=== PATIENT | male | born 1935 | race Hispanic/Latino ===

== ENCOUNTER → 2018-03-21 | Outpatient (CLI) | payer OTHER | END | disposition home or self-care (01) | LOC: RAH 09:29 | PROVIDERS: ATTEND Family Medicine | DX: M17.12 Unilateral primary osteoarthritis, left knee (principal) | CPT/HCPCS: 73562 ==

== ENCOUNTER → 2019-11-12 | Outpatient (CLI) | payer OTHER | END | disposition home or self-care (01) | LOC: OIH 10:50 | PROVIDERS: ATTEND Family Medicine | DX: M47.817 Spondylosis without myelopathy or radiculopathy, lumbosacral region (principal); M85.88 Other specified disorders of bone density and structure, other site; I70.0 Atherosclerosis of aorta | CPT/HCPCS: 72100; 73502 ==

== ENCOUNTER 2019-12-02 22:03 | Inpatient (IN) | payer OTHER ==
[~2019-12-02] VITALS: Ht 180.3 cm; Wt 112.3 kg
[2019-12-02] MEDS ORDERED: ONDANSETRON HCL 4 MG/2 ML VIAL ONE (22:43)
[2019-12-02 22:47] LABS: BASOPHILS % (AUTO) 0.3 % (0.0-5.0); EOSINOPHILS % (AUTO) 0.1 % (0.0-8.0); HEMATOCRIT 47.4 % (42-54); LYMPHOCYTES % (AUTO) 5.3 % (21.0-51.0); MEAN CORPUSCULAR HEMOGLOBIN 30.2 pg (27.0-33.0); MEAN CORPUSCULAR HGB CONC 33.5 g/dL (32.0-36.0); MEAN CORPUSCULAR VOLUME 89.9 fL (79-99); MONOCYTES % (AUTO) 3.3 % (3.0-13.0); NEUTROPHILS % (AUTO) 90.6 % (40.0-77.0); PLATELET COUNT (AUTO) 285 K/uL (130-400); RED BLOOD CELL COUNT(AUTO) 5.27 MIL/uL (4.50-6.20); RED CELL DISTRIBUTION WIDTH 14.5 % (11.0-15.5); WHITE BLOOD COUNT (AUTO) 17.7 K/uL (4.8-10.8)
[2019-12-02 22:58] LABS: CREATININE 1.3 mg/dL (0.5-1.5); POTASSIUM 4.4 mmol/L (3.5-5.1)
[2019-12-02 23:04] LABS: ALBUMIN 3.1 g/dL (3.5-5.0); BILIRUBIN,TOTAL 2.7 mg/dL (0.2-1.0); TOTAL PROTEIN, SERUM 7.5 g/dL (6.0-8.3)
[2019-12-02] MEDS ORDERED: ZOSYN 3.375GM+NS 50ML 50 ML IV ONE (23:32)
[2019-12-02 23:46] LABS: APPEARANCE,URINE Clear (CLEAR); BILIRUBIN,URINE Small (NEGATIVE); COLOR,URINE Dark Yellow (YELLOW); GLUCOSE, URINE (UA) Negative (NEGATIVE); KETONES,URINE Negative (NEGATIVE); LEUKOCYTE ESTERASE ,URINE Trace (NEGATIVE); NITRATE,URINE Negative (NEGATIVE); OCCULT BLOOD,URINE Negative (NEGATIVE); PH,URINE 5.5 (5.0-8.0); PROTEIN,URINE Negative (NEGATIVE); UROBILINOGEN,URINE >=8.0 mg/dL (0.2-1.0)
[2019-12-03] VITALS (7 sets, daily range): BP systolic 143–173; BP diastolic 79–94
[2019-12-03 00:05] LABS: AMORPHOUS SEDIMENT,UR Few /LPF (None Seen); BACTERIA,URINE Few /HPF (None Seen); MUCUS,URINE Rare LPF (None Seen); RBC,URINE 0-1 /HPF (0-1); SQUAMOUS EPITHELIAL CELL,UR 0-2 /HPF (0-2); WBC,URINE 0-1 /HPF (0-1)
[2019-12-03] MEDS ORDERED: ONDANSETRON HCL 4 MG/2 ML VIAL IVP PRN (00:30)
[2019-12-03] MEDS ORDERED: VANCOMYCIN 1GM+NS 250ML 250 ML IV ONE (00:38)
[2019-12-03] MEDS ORDERED: MEPERIDINE-PF 50 MG/ML SYG IVP PRN ×2 (00:45→04:45)
[2019-12-03] MEDS ORDERED: VANCOMYCIN PROTOCOL PER PHARMACY IV SCH (01:00)
--- NOTE | 2019-12-03 01:00 | NUR ---
ER ADMIT Arrived from ER accompanied per ,pt is aao x 3,has HX of Alzheimers according to his .Admission care rendered,plan of care explained to pt and his in Macedonian per Yeimi Zimmerman RN.
[2019-12-03] MEDS ORDERED: TAMS-1 PO (01:32)
[2019-12-03] MEDS ORDERED: NAPR-1023 PO (01:32)
[2019-12-03] MEDS ORDERED: ONDA4TAB10 PO (01:32)
[2019-12-03] MEDS ORDERED: BACTSS PO (01:32)
[2019-12-03] MEDS ORDERED: DICL100G31 TP (01:32)
[2019-12-03] MEDS ORDERED: LINA145C PO (01:32)
[2019-12-03] MEDS ORDERED: LOSA100T58 PO (01:32)
[2019-12-03] MEDS ORDERED: FLUT1BLS3 IH (01:32)
[2019-12-03] MEDS ORDERED: FOLI1 PO (01:32)
[2019-12-03] MEDS: VANCOMYCIN 1GM+NS 250ML 250 ML IV SCH ×3 (01:57→03:17)
[2019-12-03] MEDS: SODIUM CHLORIDE 0.9% 1000ML 1,000 ML IV SCH ×2 (01:57→13:03)
--- NOTE | 2019-12-03 02:46 | NUR ---
VANCOMYCIN Pt was given 1 gram Vancomycin in ED,additional 1 gm given on the floor.
[2019-12-03 05:49] LABS: HEMATOCRIT 41.7 % (42-54); MEAN CORPUSCULAR HEMOGLOBIN 29.9 pg (27.0-33.0); MEAN CORPUSCULAR HGB CONC 33.6 g/dL (32.0-36.0); MEAN CORPUSCULAR VOLUME 88.9 fL (79-99); RED BLOOD CELL COUNT(AUTO) 4.69 MIL/uL (4.50-6.20); RED CELL DISTRIBUTION WIDTH 14.5 % (11.0-15.5)
[2019-12-03 06:12] LABS: ALBUMIN 2.4 g/dL (3.5-5.0); BILIRUBIN,TOTAL 2.3 mg/dL (0.2-1.0); CREATININE 1.3 mg/dL (0.5-1.5); POTASSIUM 4.1 mmol/L (3.5-5.1); TOTAL PROTEIN, SERUM 5.9 g/dL (6.0-8.3)
--- NOTE | 2019-12-03 08:30 | NUR ---
DR. LLANES AWARE OF CONSULT SPOKE TO MD VIA TELEPHONE REGARDING CONSULT
[2019-12-03] MEDS: ZOSYN 3.375GM+NS 50ML 50 ML IV SCH ×3 (09:30→23:52)
[2019-12-03] MEDS: PANTOPRAZOLE 40 MG/VIAL IVP SCH (09:31)
[2019-12-03] MEDS ORDERED: COMPOUND IV REFRIGERATED 1 EACH IVSOLN MISC PRN (12:00)
--- NOTE | 2019-12-03 12:08 | NUR ---
DCP CM met with pt currently being taken for MRCP. Called daughter on facesheet, spoke to Janet Lambert , discussed dc plans. Per leena pt is semi-independent prior to admission, lives at home with spouse, daughter lives close by. Denies any equipments/services. Feels safe to go back home, spouse able to assist with transportation and needs. DC plan to home once stable. CM to cont to follow up. Addendum: 12/03/19 at 1210 by KARSTEN NICHOLAS LVN CM Amended: Links added.
--- NOTE | 2019-12-03 15:30 | NUR ---
DR. MARIO ALBERTO MARSHALL CALLED DR. BOOTHE'S OFFICE, SPOKE TO "SANDEEP" [phone]. INFORMED THAT MRCP RESULTS AVAILABLE.
--- NOTE | 2019-12-03 15:50 | NUR ---
DR. HERZOG SPOKE TO MD REGARDING DR. LLANES RECOMMENDATIONS. DR. MINO BRAXTONED FOR GENERAL SURGERY CONSULT.
--- NOTE | 2019-12-03 15:55 | NUR ---
DR. HINTON AWARE OF CONSULT SPOKE TO MD REGARDING CONSULT.
--- NOTE | 2019-12-03 16:08 | NUR ---
DR. MINO MARSHALL MD TO INFORM THAT MEDICAL CLEARANCE NEEDED AND H&P NEEDED WELL. NO ANSWER AT THIS TIME.
--- NOTE | 2019-12-03 16:13 | NUR ---
DR. MINO YOON AWARE MEDICAL CLEARANCE AND H&P NEEDED FOR PATIENT. STATES HE "WILL DO IT LATER TODAY."
--- NOTE | 2019-12-03 19:44 | NUR ---
BP: 174/95 informed by bobby WILLIAMSON with an order to resume home meds.
[2019-12-03] MEDS ORDERED: NAPROXEN 500 MG TABLET PO PRN (21:15)
--- NOTE | 2019-12-03 21:24 | NUR ---
BP: 181/93 informed thru phone pt. on NPO thus, needs a BP med via IV. then ordered the ff: 1. Labetalol 5 mg IV q4h prn for systolic greater 150 2. Nitropaste 1 inch chest wall q8h schedule.
[2019-12-03] MEDS: NITROGLYCERIN 1GM/1 INCH PACKET TD SCH (22:27)
[2019-12-03] MEDS: LABETALOL 20 MG/4 ML DISP.SYRIN IV PRN (22:33)
[2019-12-03] MEDS: VANCOMYCIN 1.75 GM in SODIUM CHLORIDE 0.9% 250 ML IV SCH (23:52)
[2019-12-04] VITALS (26 sets, daily range): BP systolic 115–185; BP diastolic 53–112
[2019-12-04] MEDS: SODIUM CHLORIDE 0.9% 1000ML 1,000 ML IV SCH ×2 (00:02→13:23)
[2019-12-04] MEDS: NITROGLYCERIN 1GM/1 INCH PACKET TD SCH ×3 (05:25→23:12)
[2019-12-04 06:19] LABS: AMYLASE 153 U/L (25-115); LIPASE 836 U/L (114-286)
[2019-12-04] MEDS ORDERED: NITROGLYCERIN 1GM/1 INCH PACKET TD SCH (06:30)
[2019-12-04] MEDS: **HM**(Linaclotide (Linzess) 145 MCG PO SCH (07:30)
--- NOTE | 2019-12-04 08:51 | NUR ---
DR. HERZOG CONTACT DR. HERZOG REGARDING MEDICAL CLEARANCE FOR PENDING PROCEDURE. DR. HERZOG STATED PATIENT IS MEDICALLY CLEAR FOR PROCEDURE.
[2019-12-04] MEDS: ZOSYN 3.375GM+NS 50ML 50 ML IV SCH ×2 (08:55→15:41)
[2019-12-04] MEDS: PANTOPRAZOLE 40 MG/VIAL IVP SCH (08:55)
[2019-12-04] MEDS: LOSARTAN 100 MG TABLET PO SCH (08:59)
[2019-12-04] MEDS: FOLIC ACID 1 MG TABLET PO SCH (08:59)
[2019-12-04] MEDS: **HM**(Fluticasone/Umeclidin/Vilanter (Trelegy Ellipta 100-62.5- IH SCH (09:00)
[2019-12-04] MEDS ORDERED: DICLOFENAC TP SCH (09:00)
[2019-12-04] MEDS ORDERED: BUPIVACAINE/PF 0.5% 30ML VIAL ONE (09:28)
[2019-12-04] MEDS ORDERED: LIDOCAINE PF 2% 5ML ABBOJECT ONE (09:36)
[2019-12-04] MEDS ORDERED: FENTANYL CITRATE PF 50 MCG/1 ML 2ML VIAL ONE (09:36)
[2019-12-04] MEDS ORDERED: SUCCINYLCHOLINE 200MG/10ML SYR ONE (09:36)
[2019-12-04] MEDS ORDERED: MIDAZOLAM HCL 1 MG/ML 2ML VIAL ONE (09:36)
[2019-12-04] MEDS ORDERED: PROPOFOL 10 MG/ML 20ML VIAL IV ONE (09:36)
[2019-12-04] MEDS ORDERED: ROCURONIUM 10MG/1ML SYR 10 MG/ML ML ONE (09:36)
[2019-12-04] MEDS ORDERED: ONDANSETRON HCL 4 MG/2 ML VIAL ONE (09:37)
[2019-12-04] MEDS ORDERED: DEXAMETHASONE SOD PHOSPHATE 10MG/ML 1ML VIAL ONE (09:37)
[2019-12-04] MEDS ORDERED: EPHEDRINE SULFATE 50 MG/ML AMPULE ONE (10:43)
[2019-12-04] MEDS ORDERED: FENTANYL CITRATE PF 50 MCG/1 ML 5ML AMP IV ONE (11:05)
[2019-12-04] MEDS ORDERED: ESMOLOL HCL 10 MG/ML 10 ML VIAL ONE (11:07)
[2019-12-04] MEDS ORDERED: NEOSTIGMINE 5MG/5ML SYR IV ONE (11:07)
[2019-12-04] MEDS ORDERED: GLYCOPYRROLATE 1 MG/5 ML SYRINGE ONE (11:07)
[2019-12-04] MEDS: LABETALOL 20 MG/4 ML DISP.SYRIN IV PRN ×2 (12:33→16:32)
--- NOTE | 2019-12-04 15:09 | NUR ---
RD NOTIFICATION - TRIGGER Pt admitted for pancreatitis. Pt s/p Lap shadia as per EMR. Pt was NPO at time of screen pending procedure. Diet current advanced to Clear Liquid Diet Order. Pt with Class II Obesity (34.5). History of Dementia, DM, HTN, HLD. Recommend advance diet as tolerated to GI Soft/[place], 75gm CCD, as medically feasible. RD to continue to monitor. Please notify as nutrition concerns arise. thank you. Addendum: 12/04/19 at [address] RD Amended: Links added.
--- NOTE | 2019-12-04 16:18 | NUR ---
[id number] patient's signed IM Letter, I faxed IM Letter to [phone] and placed in chart under consent tab.
[2019-12-04] MEDS: TAMSULOSIN HCL 0.4 MG CAP.ER.24H PO SCH (21:00)
[2019-12-05] VITALS: BP 125/54
[2019-12-05] MEDS: ZOSYN 3.375GM+NS 50ML 50 ML IV SCH ×3 (00:07→15:18)
[2019-12-05] MEDS: SODIUM CHLORIDE 0.9% 1000ML 1,000 ML IV SCH ×3 (00:54→20:39)
[2019-12-05 04:00] VITALS: BP 122/57
[2019-12-05] MEDS: VANCOMYCIN 1.75 GM in SODIUM CHLORIDE 0.9% 250 ML IV SCH (04:00)
[2019-12-05 04:06] LABS: HEMATOCRIT 40.1 % (42-54); MEAN CORPUSCULAR HEMOGLOBIN 29.8 pg (27.0-33.0); MEAN CORPUSCULAR HGB CONC 33.4 g/dL (32.0-36.0); MEAN CORPUSCULAR VOLUME 89.3 fL (79-99); RED BLOOD CELL COUNT(AUTO) 4.49 MIL/uL (4.50-6.20); RED CELL DISTRIBUTION WIDTH 14.2 % (11.0-15.5); WHITE BLOOD COUNT (AUTO) 18.1 K/uL (4.8-10.8)
[2019-12-05 04:36] LABS: ALBUMIN 2.2 g/dL (3.5-5.0); BILIRUBIN,TOTAL 1.5 mg/dL (0.2-1.0); CREATININE 1.2 mg/dL (0.5-1.5); POTASSIUM 4.1 mmol/L (3.5-5.1); TOTAL PROTEIN, SERUM 5.9 g/dL (6.0-8.3)
[2019-12-05] MEDS: **HM**(Linaclotide (Linzess) 145 MCG PO SCH (07:30)
[2019-12-05] MEDS: NITROGLYCERIN 1GM/1 INCH PACKET TD SCH ×3 (07:40→20:39)
[2019-12-05 08:00] VITALS: BP 135/74
[2019-12-05] MEDS: **HM**(Fluticasone/Umeclidin/Vilanter (Trelegy Ellipta 100-62.5- IH SCH (08:44)
[2019-12-05] MEDS: PANTOPRAZOLE 40 MG/VIAL IVP SCH (09:03)
[2019-12-05] MEDS: FOLIC ACID 1 MG TABLET PO SCH (09:04)
[2019-12-05] MEDS: LOSARTAN 100 MG TABLET PO SCH (09:04)
[2019-12-05 12:00] VITALS: BP 154/92
[2019-12-05 16:00] VITALS: BP 154/99
[2019-12-05] MEDS: LABETALOL 20 MG/4 ML DISP.SYRIN IV PRN (17:12)
[2019-12-05 20:00] VITALS: BP 146/81
[2019-12-05] MEDS: TAMSULOSIN HCL 0.4 MG CAP.ER.24H PO SCH (20:39)
[2019-12-06] VITALS (7 sets, daily range): BP systolic 132–161; BP diastolic 52–92
[2019-12-06] MEDS: ZOSYN 3.375GM+NS 50ML 50 ML IV SCH ×3 (00:23→16:00)
[2019-12-06] MEDS: VANCOMYCIN 1.75 GM in SODIUM CHLORIDE 0.9% 250 ML IV SCH (00:23)
[2019-12-06] MEDS: NITROGLYCERIN 1GM/1 INCH PACKET TD SCH ×3 (04:34→22:04)
[2019-12-06] MEDS: **HM**(Linaclotide (Linzess) 145 MCG PO SCH (04:40)
[2019-12-06 06:09] LABS: BASOPHILS % (AUTO) 0.2 % (0.0-5.0); EOSINOPHILS % (AUTO) 0.2 % (0.0-8.0); HEMATOCRIT 37.4 % (42-54); LYMPHOCYTES % (AUTO) 5.6 % (21.0-51.0); MEAN CORPUSCULAR HEMOGLOBIN 29.7 pg (27.0-33.0); MEAN CORPUSCULAR VOLUME 87.6 fL (79-99); MONOCYTES % (AUTO) 6.3 % (3.0-13.0); NEUTROPHILS % (AUTO) 87.2 % (40.0-77.0); PLATELET COUNT (AUTO) 210 K/uL (130-400); RED BLOOD CELL COUNT(AUTO) 4.27 MIL/uL (4.50-6.20); RED CELL DISTRIBUTION WIDTH 14.3 % (11.0-15.5); WHITE BLOOD COUNT (AUTO) 19.7 K/uL (4.8-10.8)
[2019-12-06 06:25] LABS: ALBUMIN 2.1 g/dL (3.5-5.0); BILIRUBIN,TOTAL 1.4 mg/dL (0.2-1.0); CREATININE 1.1 mg/dL (0.5-1.5); POTASSIUM 3.7 mmol/L (3.5-5.1); TOTAL PROTEIN, SERUM 5.7 g/dL (6.0-8.3)
[2019-12-06] MEDS: **HM**(Fluticasone/Umeclidin/Vilanter (Trelegy Ellipta 100-62.5- IH SCH (09:00)
[2019-12-06] MEDS: PANTOPRAZOLE 40 MG/VIAL IVP SCH (09:43)
[2019-12-06] MEDS: LOSARTAN 100 MG TABLET PO SCH (09:43)
[2019-12-06] MEDS: FOLIC ACID 1 MG TABLET PO SCH (09:43)
[2019-12-06] MEDS ORDERED: ACETAMINOPHEN 325 MG TAB ONE (10:04)
[2019-12-06] MEDS ORDERED: ACETAMINOPHEN 325 MG TAB PO SCH (10:15)
[2019-12-06] MEDS: SODIUM CHLORIDE 0.9% 1000ML 1,000 ML IV SCH ×2 (10:54→22:05)
--- NOTE | 2019-12-06 12:38 | NUR ---
DR. MARY JANE ROBERTSON CAME TO SEE PT AT BEDSIDE, PT C/O OF CONSTIPATION , NEW OR OF MILK MG X ONCE.
[2019-12-06] MEDS ORDERED: MAGNESIUM HYDROXIDE 30 ML/UDCUP PO SCH (12:45)
[2019-12-06] MEDS: TAMSULOSIN HCL 0.4 MG CAP.ER.24H PO SCH (22:04)
[2019-12-07] MEDS: ZOSYN 3.375GM+NS 50ML 50 ML IV SCH ×4 (00:10→23:35)
[2019-12-07] MEDS: VANCOMYCIN 1.75 GM in SODIUM CHLORIDE 0.9% 250 ML IV SCH (00:43)
[2019-12-07 04:00] VITALS: BP 111/75
[2019-12-07] MEDS: NITROGLYCERIN 1GM/1 INCH PACKET TD SCH ×3 (04:33→20:12)
[2019-12-07] MEDS: **HM**(Linaclotide (Linzess) 145 MCG PO SCH (04:33)
[2019-12-07 07:38] VITALS: BP 136/74
[2019-12-07] MEDS: LOSARTAN 100 MG TABLET PO SCH (08:18)
[2019-12-07] MEDS: FOLIC ACID 1 MG TABLET PO SCH (08:18)
[2019-12-07] MEDS: VANCOMYCIN 1.25 GM in SODIUM CHLORIDE 0.9% 250 ML IV SCH ×2 (08:19→20:13)
[2019-12-07] MEDS: PANTOPRAZOLE 40 MG/VIAL IVP SCH (08:29)
[2019-12-07] MEDS: **HM**(Fluticasone/Umeclidin/Vilanter (Trelegy Ellipta 100-62.5- IH SCH (09:00)
[2019-12-07] MEDS: SODIUM CHLORIDE 0.9% 1000ML 1,000 ML IV SCH ×2 (11:06→20:13)
[2019-12-07 11:25] VITALS: BP 126/74
[2019-12-07] MEDS ORDERED: MAGNESIUM HYDROXIDE 30 ML/UDCUP PO SCH (12:30)
[2019-12-07] MEDS: IPRATROPIUM/ALBUTEROL SULFATE 3 ML SOLUTION IH PRN ×2 (13:31→19:41)
[2019-12-07 16:40] VITALS: BP 111/61
[2019-12-07 19:51] VITALS: BP 130/79
[2019-12-07] MEDS: TAMSULOSIN HCL 0.4 MG CAP.ER.24H PO SCH (20:12)
[2019-12-07 23:29] VITALS: BP 173/95
[2019-12-07] MEDS: LABETALOL 20 MG/4 ML DISP.SYRIN IV PRN (23:48)
--- NOTE | 2019-12-07 23:48 | NUR ---
B/P B/P 173/95 NO SOB, NO C/O PAIN , LABETOLOL 5MG IVP GIVEN SLOWLY
--- NOTE | 2019-12-08 00:45 | NUR ---
MED EFFECT B/P 144/75, NO SOB, NO C/O PAIN, PATIENTS AT BEDSIDE
[2019-12-08 04:00] VITALS: BP 154/88
[2019-12-08] MEDS: NITROGLYCERIN 1GM/1 INCH PACKET TD SCH ×3 (04:11→21:12)
[2019-12-08] MEDS: **HM**(Linaclotide (Linzess) 145 MCG PO SCH (07:30)
[2019-12-08 07:44] VITALS: BP 164/88
[2019-12-08] MEDS: ZOSYN 3.375GM+NS 50ML 50 ML IV SCH ×2 (07:58→17:00)
[2019-12-08] MEDS: LOSARTAN 100 MG TABLET PO SCH (08:09)
[2019-12-08] MEDS: FOLIC ACID 1 MG TABLET PO SCH (08:09)
[2019-12-08] MEDS: PANTOPRAZOLE SODIUM 40 MG TABLET.DR PO SCH (08:09)
[2019-12-08] MEDS: **HM**(Fluticasone/Umeclidin/Vilanter (Trelegy Ellipta 100-62.5- IH SCH (08:10)
[2019-12-08] MEDS: VANCOMYCIN 1.25 GM in SODIUM CHLORIDE 0.9% 250 ML IV SCH ×2 (09:00→21:10)
[2019-12-08 11:21] VITALS: BP 142/86
[2019-12-08] MEDS: SODIUM CHLORIDE 0.9% 1000ML 1,000 ML IV SCH ×2 (12:00→21:50)
[2019-12-08] MEDS: DOCUSATE SODIUM 100 MG CAP PO SCH ×2 (13:22→19:21)
[2019-12-08 16:10] VITALS: BP 135/82
[2019-12-08] MEDS ORDERED: BISACODYL 5 MG TABLET.DR PO SCH (18:00)
[2019-12-08] MEDS ORDERED: MAGNESIUM HYDROXIDE 30 ML/UDCUP PO SCH (18:00)
[2019-12-08] MEDS: TAMSULOSIN HCL 0.4 MG CAP.ER.24H PO SCH (19:21)
[2019-12-08 20:00] VITALS: BP 174/95
[2019-12-08] MEDS: MEPERIDINE-PF 50 MG/ML SYG IVP PRN (21:10)
[2019-12-08] MEDS: MORPHINE SULFATE 4 MG/1ML SYG IV PRN (21:50)
[2019-12-08 23:33] VITALS: BP 162/83
[2019-12-09] MEDS: ZOSYN 3.375GM+NS 50ML 50 ML IV SCH ×3 (00:05→16:54)
[2019-12-09] MEDS: MEPERIDINE-PF 50 MG/ML SYG IVP PRN ×2 (00:49→04:28)
[2019-12-09] MEDS: MORPHINE SULFATE 4 MG/1ML SYG IV PRN ×2 (01:56→05:12)
[2019-12-09 04:00] VITALS: BP 180/96
[2019-12-09] MEDS: LABETALOL 20 MG/4 ML DISP.SYRIN IV PRN (04:16)
[2019-12-09] MEDS: NITROGLYCERIN 1GM/1 INCH PACKET TD SCH ×3 (04:17→21:21)
[2019-12-09 04:29] LABS: HEMATOCRIT 37.7 % (42-54); MEAN CORPUSCULAR HEMOGLOBIN 30.5 pg (27.0-33.0); MEAN CORPUSCULAR HGB CONC 34.5 g/dL (32.0-36.0); MEAN CORPUSCULAR VOLUME 88.5 fL (79-99); PLATELET COUNT (AUTO) 210 K/uL (130-400); RED BLOOD CELL COUNT(AUTO) 4.26 MIL/uL (4.50-6.20); RED CELL DISTRIBUTION WIDTH 14.3 % (11.0-15.5); WHITE BLOOD COUNT (AUTO) 10.2 K/uL (4.8-10.8)
[2019-12-09 04:43] LABS: BILIRUBIN,TOTAL 1.1 mg/dL (0.2-1.0); CREATININE 1.2 mg/dL (0.5-1.5); POTASSIUM 3.8 mmol/L (3.5-5.1); TOTAL PROTEIN, SERUM 5.8 g/dL (6.0-8.3)
[2019-12-09 04:46] LABS: BAND NEUTROPHILS % (MANUAL) 3 % (0-2); BASOPHILS % (MANUAL) 1 % (0-2); EOSINOPHILS % (MANUAL) 2 % (1-6); LYMPHOCYTES % (MANUAL) 11 % (22-44); MONOCYTES % (MANUAL) 5 % (2-9); SEGMENTED NEUTROPHILS % 78 % (40-70)
[2019-12-09 04:47] LABS: MAN.DIFF COMMENT-IMPRESSION MANUAL DIFFERENTIAL; PLATELET MORPHOLOGY COMMENT ADEQUATE
[2019-12-09 05:49] VITALS: BP 159/82
[2019-12-09] MEDS: **HM**(Linaclotide (Linzess) 145 MCG PO SCH (05:49)
[2019-12-09 07:30] VITALS: BP 156/74
[2019-12-09] MEDS: VANCOMYCIN 1.25 GM in SODIUM CHLORIDE 0.9% 250 ML IV SCH ×2 (10:15→21:21)
[2019-12-09] MEDS: FOLIC ACID 1 MG TABLET PO SCH (10:16)
[2019-12-09] MEDS: DOCUSATE SODIUM 100 MG CAP PO SCH ×3 (10:17→21:00)
[2019-12-09] MEDS: PANTOPRAZOLE SODIUM 40 MG TABLET.DR PO SCH (10:17)
[2019-12-09] MEDS: LOSARTAN 100 MG TABLET PO SCH (10:17)
[2019-12-09] MEDS: SODIUM CHLORIDE 0.9% 1000ML 1,000 ML IV SCH ×2 (10:19→21:20)
[2019-12-09] MEDS: **HM**(Fluticasone/Umeclidin/Vilanter (Trelegy Ellipta 100-62.5- IH SCH (10:24)
[2019-12-09 11:00] VITALS: BP 128/76
--- NOTE | 2019-12-09 14:09 | NUR ---
DC PLAN VISITED WITH PATIENT. PATIENT SPOUSE IN ROOM. NEITHER WANTED TO MAKE DECISION DEFFERED TO DAUGHTER ON FACE SHEET. SPOUSE GOT DAUGHTER ON PHONE LET HER KNOW OF [facility] FOR SNF. GAVE HER CHOICES BASED ON INSURANCE. SAID SHE WILL CHECK THEM OUT ON LINE. GAVE HER NUMBER TO CALL BACK. Addendum: 12/09/19 at 1412 by EBEN NGO RN CM Amended: Links added.
[2019-12-09 16:00] VITALS: BP 136/71
[2019-12-09 20:21] VITALS: BP 142/66
[2019-12-09] MEDS: TAMSULOSIN HCL 0.4 MG CAP.ER.24H PO SCH (21:21)
[2019-12-10 00:16] VITALS: BP 143/78
[2019-12-10] MEDS: ZOSYN 3.375GM+NS 50ML 50 ML IV SCH ×3 (00:43→16:35)
[2019-12-10 03:52] VITALS: BP 151/82
[2019-12-10] MEDS: NITROGLYCERIN 1GM/1 INCH PACKET TD SCH ×3 (06:13→23:10)
[2019-12-10] MEDS: **HM**(Linaclotide (Linzess) 145 MCG PO SCH (06:13)
[2019-12-10 07:30] VITALS: BP 172/83
[2019-12-10] MEDS: LOSARTAN 100 MG TABLET PO SCH (08:33)
[2019-12-10] MEDS: FOLIC ACID 1 MG TABLET PO SCH (08:33)
[2019-12-10] MEDS: PANTOPRAZOLE SODIUM 40 MG TABLET.DR PO SCH (08:33)
[2019-12-10] MEDS: DOCUSATE SODIUM 100 MG CAP PO SCH ×3 (08:33→23:09)
[2019-12-10] MEDS: **HM**(Fluticasone/Umeclidin/Vilanter (Trelegy Ellipta 100-62.5- IH SCH (09:00)
[2019-12-10] MEDS: VANCOMYCIN 1.25 GM in SODIUM CHLORIDE 0.9% 250 ML IV SCH (09:00)
[2019-12-10] MEDS: SODIUM CHLORIDE 0.9% 1000ML 1,000 ML IV SCH (09:00)
--- NOTE | 2019-12-10 10:55 | NUR ---
CHART REVIEWED, DISCUSSED WITH DR. HERZOG, ADVISED PT WILL BE ON ABX AT DISCHARGE WILL PLACE SNF ORDER WHEN FAMILY DECIDES WHICH FACILITY Addendum: 12/10/19 at 1058 by JESSICA LEON RN CM Amended: Links added.
[2019-12-10 11:00] VITALS: BP 132/72
--- NOTE | 2019-12-10 11:18 | NUR ---
CALL WITH DAUGHTER NAE - DISCUSSED NEED FOR SNF- NO IV ABX, WOULD RATHER TAKE PATIENT HOME, HH, PT, ETC, TEXT TO DR. LAGUERRE, AWAITING CALL BACK FOR ORDER
[2019-12-10 16:00] VITALS: BP 138/69
--- NOTE | 2019-12-10 17:00 | NUR ---
NOTIFIED ON TEMP 100.4. ORDERS FOR UA AND CX ,SENT .
[2019-12-10 20:18] VITALS: BP 147/63
[2019-12-10] MEDS: TAMSULOSIN HCL 0.4 MG CAP.ER.24H PO SCH (23:09)
[2019-12-10] MEDS: VANCOMYCIN 1GM+NS 250ML IV SCH (23:10)
[2019-12-11 00:20] VITALS: BP 130/72
[2019-12-11] MEDS: ZOSYN 3.375GM+NS 50ML 50 ML IV SCH ×3 (03:24→16:22)
[2019-12-11 04:27] VITALS: BP 151/83
[2019-12-11] MEDS: NITROGLYCERIN 1GM/1 INCH PACKET TD SCH ×2 (06:44→13:30)
[2019-12-11] MEDS: **HM**(Linaclotide (Linzess) 145 MCG PO SCH (07:30)
[2019-12-11 07:51] VITALS: BP 151/81
[2019-12-11] MEDS: DOCUSATE SODIUM 100 MG CAP PO SCH ×2 (09:55→14:00)
[2019-12-11] MEDS: VANCOMYCIN 1GM+NS 250ML IV SCH (09:56)
[2019-12-11] MEDS: FOLIC ACID 1 MG TABLET PO SCH (09:56)
[2019-12-11] MEDS: LOSARTAN 100 MG TABLET PO SCH (09:56)
[2019-12-11] MEDS: PANTOPRAZOLE SODIUM 40 MG TABLET.DR PO SCH (09:56)
[2019-12-11] MEDS: **HM**(Fluticasone/Umeclidin/Vilanter (Trelegy Ellipta 100-62.5- IH SCH (09:57)
[2019-12-11] MEDS: SODIUM CHLORIDE 0.9% 1000ML 1,000 ML IV SCH (09:57)
[2019-12-11 11:03] VITALS: BP 155/80
--- NOTE | 2019-12-11 15:46 | NUR ---
RD FOLLOW UP Diet advanced to GI Soft/[place] diet order. No report of GI distress. Pt with fair PO intake. Pt is s/p cholecystectomy. Recommend continue current diet order. RD to continue to monitor. Please notify as additional nutrition concerns arise. Thank you. Addendum: 12/11/19 at [address] RD Amended: Links added.
[2019-12-11 16:00] VITALS: BP 152/77
--- NOTE | 2019-12-11 17:00 | NUR ---
HOME HEALTH HCD CONFIRMED PATIENT WILL BE SEEN ON MONDAY, NOT TOMORROW THEY HAVE NO STAFF, CALL TO FAMILY, CONFIRMED AT BEDSIDE THAT IT WAS OK WITH SPOUSE, PATIENT, AND FAMILY; ZOHRA NOTE- HOME HEALTH AT DISCHARGE CONFIRMED WITH HCD THAT HOME HEALTH NURSE WILL SEE PATIENT ON MONDAY- NO STAFFING TOMORROW FOR INITIAL VISIT. CONFIRMED WITH FAMILY,SPOUSE, PT OK TO DC CALL TO DR. HERZOG, OK TO DISCHARGE WITH TO START MONDAY. CONFIRMED THAT [facility] AND WHEEL CHAIR WILL BE DELIVERED TO [facility] FOR PATIENT/FAMILY TO TOBACCO SORTER AT DISCHARGE., CALL TO SECURITY, UPDATED PRIMARY RN Addendum: 12/12/19 at 0843 by JESSICA LEON RN CM Amended: Links added.
--- NOTE | 2019-12-11 17:52 | NUR ---
REPORT [facility] CALLED. REPORT GIVEN TO FLORY PARKER RN. NO CONCERNS VOICED. FLORY AWARE OF CONSULTS.
--- NOTE | 2019-12-11 19:47 | NUR ---
DISCHARGE PATIENT GIVEN DISCHARGE INSTRUCTRIONS AND EDUCATION ON FOLLOW UP APPOINTMENTS AND NEW PRESCRIBED MEDICATION. PATIENT VERBALIZED UNDERSTANDING OF ALL EDUCATION GIVEN VIA TEACH BACK., NO DISTRESS NOTED UPON DISCHARGE. IV DC AND TELE MONITOR DC AND AWARE. UMAIR DRAIN DC TIP OF CATHETER INTACT.
== END 2019-12-11 19:40 | disposition home health service (06) | DRG 417 ==
LOC: EDH 22:03 → EDHIP 23:30 → OBSVTOIN 23:30 → 3AH 12-03 00:08
PROVIDERS: ADMIT Family Medicine; ATTEND Family Medicine
PROC: 0FT44ZZ Resection of Gallbladder, Percutaneous Endoscopic Approach (ICD-10-PCS; principal; 2019-12-04 10:23)
PROC: 0WQF0ZZ Repair Abdominal Wall, Open Approach (ICD-10-PCS; 2019-12-04 10:23)
DX: K81.0 Acute cholecystitis (principal); K85.10 Biliary acute pancreatitis without necrosis or infection; K82.A1 Gangrene of gallbladder in cholecystitis; E11.9 Type 2 diabetes mellitus without complications; E78.5 Hyperlipidemia, unspecified; I10 Essential (primary) hypertension; F03.90 Unspecified dementia, unspecified severity, without behavioral disturbance, psychotic disturbance, mood disturbance, and anxiety; E11.51 Type 2 diabetes mellitus with diabetic peripheral angiopathy without gangrene; E66.01 Morbid (severe) obesity due to excess calories; E11.42 Type 2 diabetes mellitus with diabetic polyneuropathy; J44.9 Chronic obstructive pulmonary disease, unspecified; K42.9 Umbilical hernia without obstruction or gangrene; K66.0 Peritoneal adhesions (postprocedural) (postinfection); K82.8 Other specified diseases of gallbladder; N40.0 Benign prostatic hyperplasia without lower urinary tract symptoms; Z68.34 Body mass index [BMI] 34.0-34.9, adult
CPT/HCPCS: 36415; 71045; 74176; 74181; 76705; 80053; 80202; 81001; 82150; 82550; 82948; 83690; 83735; 84484; 85025; 85027; 87040; 88304; 93005; 94640; 94664; 94667; 94668; 97039; 99291; C9113; G0378; J0330; J1100; J2001; J2175; J2250; J2270; J2405; J2543; J2704; J2710; J3010; J3370; J3490; J7030; J7050

== ENCOUNTER → 2020-04-02 | Outpatient (CLI) | payer OTHER ==
[~2020-04-02] MED LIST: BACTSS PO; DICL100G31 TP; FLUT1BLS3 IH; FOLI1 PO; LINA145C PO; LOSA100T58 PO; NAPR-1023 PO; ONDA4TAB10 PO; TAMS-1 PO
== END | disposition home or self-care (01) ==
LOC: RAH 08:19
PROVIDERS: ATTEND Family Medicine
DX: R06.02 Shortness of breath (principal); R60.9 Edema, unspecified; M47.814 Spondylosis without myelopathy or radiculopathy, thoracic region
CPT/HCPCS: 71046; 93970